=== PATIENT | female | born 1965 | race African-American/Black ===

== ENCOUNTER 2019-06-08 12:15 | Emergency (ER) | payer BC ==
--- NOTE | 2019-06-08 12:39 | UC ---
Knee Pain HPI - HPI Summary HPI Summary: 54 y/o female presents to the urgent care c/o Rt knee pain and Rt big toe pain s /p fall about 2 days ago. Pt reports she was wearing paper flip flops and floor was wet and she slipped and felt over her Rt knee and hyperflexed her RT big toe. She has a bruise and swelling over her RT big toe w/ decrease ROM. Small abrasion over the patella. But pain is mainly on Rt big toe since it is very painful to walk or stand anything over her toe. Pain is 0/10 at rest and 7/ 10 w/ movement or walking. Pt denies numbness or tingling sensation over the Rt foot, fever, SOB, calf pain, abdominal pain, N/v/d. She took Ibuprofen PO 400mg this morning around 0900Am to alleviate symptoms. No Hx of previous injury. - History of Current Complaint Chief Complaint: UCLowerExtremity Stated Complaint: S/P FALL RIGHT GREAT TOE Time Seen by Provider: 06/08/19 12:36 Hx Obtained From: Patient ?: No Onset/Duration: Sudden Onset, Lasting Days - 2 days, Still Present Severity Initially: Moderate Severity Currently: Moderate Pain Intensity: 7 - w/ standing and walking Pain Scale Used: 0-10 Numeric Character: Sharp, Throbbing Aggravating Factor(s): Movement, Prolonged Standing, Stairs Alleviating Factor(s): Rest, OTC Meds - Ibuprofen PO 400mg PO Associated Signs And Symptoms: Positive: Swelling - RT knee and Rt Big toe, Bruising - over thr Rt big toe. Negative: Weakness, Numbness, Tingling Able to Bear Weight: Yes - Risk Factors Septic Arthritis Risk Factor: Negative Gout Risk Factor: Negative - Allergies/Home Medications Allergies/Adverse Reactions: Allergies Allergy/AdvReac Type Severity Reaction Status Date / Time Sulfa (Sulfonamide Allergy "Feels Verified 06/08/19 12:30 Antibiotics) like I can't swallow", Nausea Home Medications: Home Medications Ibuprofen TAB* [Advil TAB*] 400 mg PO Q6H PRN 06/08/19 [History Confirmed ] Nitrofurantoin Monohyd/M-Cryst [Macrobid 100 mg Capsule] 100 mg PO BID 06/08/19 [History Confirmed 06/08/19] PMH/Surg Hx/FS Hx/Imm Hx Previously Healthy: Yes - Pt denies PMHX - Surgical History Surgical History: None - Family History Known Family History: Positive: Hypertension - Social History Occupation: Employed Full-time Lives: With Family Alcohol Use: Rare Substance Use Type: None Smoking Status (MU): Never Smoked Tobacco Review of Systems All Other Systems Reviewed And Are Negative: Yes Constitutional: Positive: Negative Skin: Positive: Bruising - RT big toe bruise w/ swelling s/p fall, Other - abrasion over the Rt patella s/p fall Eyes: Positive: Negative ENT: Positive: Negative Respiratory: Positive: Negative Cardiovascular: Positive: Negative Gastrointestinal: Positive: Negative Genitourinary: Positive: Negative Motor: Positive: Negative Neurovascular: Positive: Negative Musculoskeletal: Positive: Decreased ROM - RT big toe, Other: - RT knee pain and RT big toe pain s/p fall 2 days ago Neurological: Positive: Negative Psychological: Positive: Negative Is Patient Immunocompromised?: No Physical Exam - Summary Physical Exam Summary: Vital Signs Reviewed: Yes General: well developed, well nourished female sitting in the examining table w/ o any apparent distress Eyes: Positive: Conjunctiva Clear - PERRLA, EOMI, fundi grossly normal ENT: Positive: Normal ENT inspection, Hearing grossly normal, Pharynx normal, TMs normal Neck: Positive: Supple, Nontender, No Lymphadenopathy Respiratory: Positive: Chest nontender, Lungs clear, Normal breath sounds, No respiratory distress Cardiovascular: Positive: RRR, No Murmur, Pulses Normal, Brisk Capillary Refill Abdomen Description: Positive: Nontender, No Organomegaly, Soft. Negative: CVA Tenderness (R), CVA Tenderness (L) Bowel Sounds: Positive: Present Musculoskeletal: Positive: Strength Intact, No Edema, RT Knee: Pt is able to bear weight and ambulate with limping. soft tissue mild swelling over patella w / a discrete abrasion, no obvious effusion. No overlying erythema or warmth. The R knee is without obvious asymmetry or deformity when compared with the L knee. Decreased ROM of RT knee due to pain. No tenderness to palpation of the patella, no effusion or ballottement. No tenderness over the infrapatellar tendon. Point tenderness over the medial joint line, No tenderness over the medial or lateral tibial plateaus. No tenderness over the proximal fibular head , No tenderness, fullness or mass of the popliteal fossa. No quadriceps tenderness. No laxity of the ACL. PCL, MCL, or LCL. no collateral ligament laxity to valgus or varus stress. Negative Rodolfo/Drawer sign. Negative Jose. Distal motor and neurovascular status intact. RT foot :Positicve ecchymosis and bruise around the entire RT big toe, no erythema, no ulcers or break in skin integrity. The R foot is without obvious asymmetry or deformity when compared to the L foot. No bony step-off, tenderness to palpation over the Big toe, no tenderness over the mid foot, no tenderness of hindfoot, or the rest of the toes. Decrease plantar/dorsiflexion , inversion/eversion due to pain. Distal motor and neurovascular status are intact. Neurological Exam: Normal Psychological Exam: Normal Skin Exam: Normal Triage Information Reviewed: Yes Vital Signs: Initial Vital Signs Temp 99.1 F 06/08/19 12:28 Pulse 84 06/08/19 12:28 Resp 16 06/08/19 12:28 BP 148/96 06/08/19 12:28 Pulse Ox 99 06/08/19 12:28 Knee Pain Course/Dx - Course Course Of Treatment: 54 y/o female presents to the urgent care c/o Rt knee pain and Rt big toe pain s /p fall about 2 days ago. Pt reports she was wearing paper flip flops and floor was wet and she slipped and felt over her Rt knee and hyperflexed her RT big toe. She has a bruise and swelling over her RT big toe w/ decrease ROM. Small abrasion over the patella. But pain is mainly on Rt big toe since it is very painful to walk or stand anything over her toe. Pain is 0/10 at rest and 7/ 10 w/ movement or walking. Pt denies numbness or tingling sensation over the Rt foot, fever, SOB, calf pain, abdominal pain, N/v/d. She took Ibuprofen PO 400mg this morning around 0900Am to alleviate symptoms. No Hx of previous injury. Hx obtained. RT knee and RTfoot X-ray ordered,REPORT AND IMPRESSION: #. Negative for joint effusion, fracture, or malalignment. #. Preserved joint spaces. #. Small accessory ossicle at the lateral margin of the patella. #. Unremarkable soft tissue contours. No subcutaneous emphysema or foreign body visualized. Rt foot X-ray IMPRESSION: OBLIQUE NONDISPLACED INTRA-ARTICULAR FRACTURE OF THE DISTAL PHALANX OF THE GREAT TOE. Pt's foot immobilized by body taping RT big toe w/ 2nd toe and sunny-bandage and given a post-op shoe to avoid flexion, Also given crutches to avoid weight bearing. . Advised RICE, and advised to continue taking Ibuprofen PO 800mg PO for pain. Strongly advised to f/u with Orthopedic DR Rodriges in 1-2 days for further evaluation and treatment before she travels to [place] next week.Pt's BP is elevated today advised to decrease salt in diet, monitor BP and f/u with PCP for further management. D/C instructions explained. Pt understood and agreed with plan of care and ;left ambulating w/ help of crutches. - Differential Dx/Diagnosis Differential Diagnosis/HQI/PQRI: Abrasion, Contusion, Fracture (Closed), Sprain , Strain, Tendonitis Provider Diagnosis: Right knee injury, Nondisplaced fracture of great toe, Pain in toe of right foot, Elevated BP without diagnosis of hypertension Discharge ED - Sign-Out/Discharge Documenting (check all that apply): Patient Departure - D/c home All imaging exams completed and their final reports reviewed: Yes - Discharge Plan Condition: Stable Disposition: HOME Patient Education Materials: Toe Fracture (ED) Referrals: [facility] [[facility]] Richie Rodriges MD [Medical Doctor] - 1 Day Additional Instructions: 1-Please take Ibuprofen PO 800mg PO q6-8hrs prn after meals as directed to alleviate pain and swelling. 2-Please apply ice, keep your foot immobilized with the Sunny bandage and post - op shoe. Avoid strenuous exercise or standing for long periods of time 3- Please f/u with Orthopedic Dr Rodriges in 1-2 days for further management in your RT bir toe fracture 4- Apply Bacitracin topical oint 2x/day for 7 days over the Rt knee abrasion 5-Your BP is elevated today advised to decrease salt in diet, monitor BP and f/ u with PCP for further management. - Billing Disposition and Condition Condition: STABLE Disposition: Home - Attestation Statements Provider Attestation: This patient was not seen by me. I was available for consult. Chart reviewed. JAMISON
[2019-06-08 13:44] VITALS: BP 151/92
== END 2019-06-08 14:22 | disposition home or self-care (01) ==
LOC: UCCORT 12:15
DX: S92.424A Nondisplaced fracture of distal phalanx of right great toe, initial encounter for closed fracture (principal); M79.674 Pain in right toe(s); W01.0XXA Fall on same level from slipping, tripping and stumbling without subsequent striking against object, initial encounter; Y92.9 Unspecified place or not applicable; Z88.2 Allergy status to sulfonamides
CPT/HCPCS: 99203; G0463